=== PATIENT | female | born 1995 | race Hispanic/Latino ===

== ENCOUNTER 2022-05-24 13:24 | Outpatient (CLI) | payer OTHER | END 2022-05-24 13:25 | disposition home or self-care (01) | LOC: BICULT 13:24 | PROVIDERS: ATTEND Advanced Practice Midwife | DX: O99.891 Other specified diseases and conditions complicating pregnancy (principal); N13.30 Unspecified hydronephrosis; Z3A.22 22 weeks gestation of pregnancy | CPT/HCPCS: 76805 ==